=== PATIENT | male | born 1965 | race Caucasian/White ===

== ENCOUNTER 2021-10-14 09:40 | Emergency (ER) | payer BC ==
[2021-10-14 09:52] VITALS: BMI 27.9
[2021-10-14] MEDS ORDERED: SOTROVIMAB 500 MG in SODIUM CHLORIDE 100 ML IVPB ONE (10:15)
[2021-10-14 11:08] LABS: BASO % 0.6 % (0-2.0); EOS % 0.2 % (0-4.5); HEMATOCRIT 39.7 % (35.4-49); HEMOGLOBIN 13.1 GM/dL (11.7-16.9); LYMPH % 23.3 % (8-40); MCH 30.2 pg (25.7-33.7); MCHC 32.9 g/dl (32.0-35.9); MEAN CELL VOLUME 91.6 fl (80-96); MEAN PLT VOLUME 8.3 fl (7.5-11.1); MONO % 7.3 % (3.8-10.2); NEUT % 68.6 % (42.8-82.8); PLATELET COUNT 239 10^3/uL (134-434); RBC 4.33 M/mm3 (4.00-5.60); WHITE BLOOD COUNT 5.3 K/mm3 (4.0-10.0)
[2021-10-14 13:00] VITALS: BP 135/86; PULSE 66; TEMP 98.3
[2021-10-14 13:55] LABS: CHLORIDE 109 mmol/L (98-107); SODIUM 142 mmol/L (136-145)
[2021-10-14 13:57] LABS: ANION GAP 6 MMOL/L (8-16); BLOOD UREA NITROGEN 20.9 mg/dL (7-18); CO2 27 mmol/L (21-32)
[2021-10-14 13:58] LABS: ALBUMIN 3.6 g/dl (3.4-5.0); GLUCOSE,RANDOM 93 mg/dL (74-106)
[2021-10-14 14:00] LABS: SGOT/AST 20 U/L (15-37); SGPT/ALT 26 U/L (13-61)
[2021-10-14 14:01] LABS: CREATININE 1.1 mg/dL (0.55-1.3)
[2021-10-14 14:02] LABS: BILIRUBIN,TOTAL 0.3 mg/dL (0.2-1); TOT PROT 6.3 g/dl (6.4-8.2)
[2021-10-14 14:03] LABS: ALK PHOS 49 U/L (45-117)
== END 2021-10-14 14:36 | disposition home or self-care (01) ==
LOC: JCOVINFU 09:40 → JER 09:40 → JCOVINFU 14:36
DX: U07.1 COVID-19 (principal)
CPT/HCPCS: 36415; 71046-TC-FY; 80053; 84484; 85025; 93005; 93010; 99285-25; M0247; Q0247

== ENCOUNTER 2022-06-22 13:05 | Emergency (ER) | payer BC ==
[2022-06-22 13:32] VITALS: BP 142/90; PULSE 78; RESP 18; TEMP 98.5; BMI 30.2
[2022-06-22] MEDS ORDERED: BEBTELOVIMAB (EUA) 175 MG/2 ML VIAL IVPUSH ONE (13:34)
== END 2022-06-22 16:00 | disposition home or self-care (01) ==
LOC: JER 13:05
DX: U07.1 COVID-19 (principal)
CPT/HCPCS: 99284-25; M0222; Q0222